=== PATIENT | female | born 1985 | race Caucasian/White ===

== ENCOUNTER 2016-08-02 09:30 | Day surgery (SDC) | payer OTHER ==
[~2016-08-02] VITALS: Ht 172.7 cm; Wt 70.3 kg
[~2016-08-02 09:30] MED LIST: 0.9% Sodium Chloride 1,000 ML IV SCH; ERYT-96 PO; Sodium Chloride LOK Flush 10 mL Syringe IV PRN; ZOF8 PO; fentaNYL-PF 50 mCg/mL 2 mL Inj IVPUSH PRN
[2016-08-02] MEDS ORDERED: fentaNYL-PF 50 mCg/mL 2 mL Inj IVPUSH ONE (09:31)
[2016-08-02] MEDS ORDERED: PANT40TA2 PO (09:59)
[2016-08-02] MEDS ORDERED: ACET325T51 PO (09:59)
[2016-08-02] MEDS ORDERED: GABA-502 PO (09:59)
[2016-08-02 10:01] VITALS: BP 109/63; PULSE 73; RESP 14; O2SAT 100
[2016-08-02 10:26] VITALS: BP 105/63; PULSE 62; RESP 12; O2SAT 99
[2016-08-02 10:34] VITALS: BP 110/63; PULSE 56; RESP 16; O2SAT 99
--- NOTE | 2016-08-03 06:04 | ENDO ---
[address] [address] ENDOSCOPY PROCEDURE PATIENT: KYRIE CHAN : 1985 MR#: [id number] ADMIT: 08/02/2016 JOB ID: [id number] DATE OF SERVICE: 08/02/2016 TYPE OF OPERATION: Esophagogastroduodenoscopy with biopsy. PREOPERATIVE DIAGNOSES: 1. Chronic abdominal pain. 2. Gastroesophageal reflux disease. 3. Intractable nausea and vomiting. POSTOPERATIVE DIAGNOSES: 1. Status post Ronda fundoplication. 2. Otherwise normal upper endoscopy, status post biopsy. ANESTHESIA: Fentanyl 125 mcg and Versed 6 mg IV administered. COMPLICATIONS: None. BLOOD LOSS: Minimal. DESCRIPTION OF PROCEDURE: After risks and benefits were explained to the patient, informed was obtained. After anesthesia administered, upper endoscope was then inserted into the mouth and intubated into the esophagus, stomach, second portion of duodenum. Mucosa carefully examined. After procedure was done, the scope withdrawn and procedure terminated. FINDINGS: Upon inspection of the esophagus, the esophagus was normal without masses, ulcers, or lesions. Z-line located at 40 cm from incisors. Upon entering the stomach, the stomach was also normal without masses, ulcers, or lesions. Retroflexion showed status post Ronda fundoplication wrap that was seen. Duodenal bulb, first and second portions were normal. Biopsies taken in the duodenum, antrum, body and distal esophagus. IMPRESSION: 1. Status post Ronda fundoplication. 2. Otherwise normal upper endoscopy, status post biopsy. RECOMMENDATION: Await pathology results. Follow up in GI clinic as needed.
--- NOTE | 2016-08-06 15:18 | PATH ---
SURGICAL PATHOLOGY Attending Physician:Suhas Fletcher MD CASE STATUS: Signed Out PATIENT NAME: KYRIE CHAN PID: [id number] : 1985 DATE COLLECTED:08/02/2016 20:19 SPECIMEN: 1: Duodenum, Biopsy 2: Stomach, Antrum, Biopsy 3: Gastric, Biopsy 4: Esophagus, Biopsy CLINICAL HISTORY: 1). DUODENAL BIOPSY 2). ANTRUM BIOPSY 3). GASTRIC BODY BIOPSY 4). DISTAL ESOPHAGUS BIOPSY FINAL DIAGNOSIS: 1. Duodenum, Biopsy: Duodenal mucosa with no diagnostic abnormality. Negative for active inflammation, features of sprue, dysplasia or malignancy. 2. Antrum Biopsy: Portion of gastric antral mucosa with mild chronic gastritis. No definite H. pylori organisms identified by H&E stain. Negative for intestinal metaplasia, dysplasia or malignancy. Immunohistochemistry studies pending; results will be reported as an addendum. 3. Gastric Body Biopsy: Portions of gastric body-type mucosa with mild chronic gastritis. No definite H. pylori organisms identified by H&E stain. Immunohistochemistry studies pending; results will be reported as an addendum. Negative for intestinal metaplasia, dysplasia or malignancy. 4. Distal Esophagus Biopsy: Squamocolumnar junctional mucosa with no diagnostic abnormality. Negative for intestinal metaplasia. Negative for dysplasia or malignancy. ICD10: K29.7 GROSS DESCRIPTION: The specimen is received in four formalin filled containers labeled with the patient's name. 1). The specimen is sublabeled "duodenal" and consists of 2 portions of tissue which aggregate to 0.3 x 0.3 x 0.2 CM. The specimen is entirely submitted in cassette 1A. 2). The specimen is sublabeled "antrum" and consists of 2 portions of tissue which aggregate to 0.4 x 0.3 x 0.2 CM. The specimen is entirely submitted in cassette 2A. 3). The specimen is sublabeled "gastric body" and consists of a 0.4 x 0.3 x 0.3 CM portion of tissue which is entirely submitted in cassettes 3A. 4). The specimen is sublabeled "distal esophagus" and consists of 2 portions of tissue which aggregate to 0.3 x 0.2 x 0.2 CM. The specimen is entirely submitted in cassette 4A. 08/02/2016 [facility] ICD-9 CODES: CPT CODES: 1: 34425 2: 67938, 15862 3: 44924, 38128 4: 13852 PROCEDURE/ADDENDA: Addendum SPI Addendum Diagnosis {Not Entered} Addendum Comment IMMUNOHISTOCHEIMSTRY RESULTS: 2. Antrum Biopsy: Negative for H. pylori organisms by immunohistochemistry studies. 3. Gastric Biopsy: Negative for H. pylori organisms by immunohistochemistry studies. Electronically Signed Out Krista Rbo MD Electronically Signed Out Krista Rob MD [facility] Pathology [facility] [address], [place] [address] Technical component performed at [facility], [facility] [address], [place], [address]
== END 2016-08-02 23:59 | disposition home or self-care (01) ==
LOC: END 09:30 → EDUNIT# 10:30 → END 23:59
PROVIDERS: ATTEND Internal Medicine Gastroenterology
DX: R11.2 Nausea with vomiting, unspecified (principal); R10.9 Unspecified abdominal pain; K21.9 Gastro-esophageal reflux disease without esophagitis; Z98.890 Other specified postprocedural states; K29.50 Unspecified chronic gastritis without bleeding
CPT/HCPCS: 43239; G0500; J2250; J3010; J7030